=== PATIENT | male | born 1995 | race Caucasian/White ===

== ENCOUNTER 2021-01-16 16:55 | Emergency (ER) | payer OTHER, SELFPAY ==
[2021-01-16 17:07] VITALS: BP 135/80; PULSE 106; RESP 16; TEMP 37.2; O2SAT 98; BMI 31.4
[2021-01-16] MEDS: Lidocaine HCl 1 % MPF 5 ML VIAL SUBCUT (18:23)
--- NOTE | 2021-01-16 18:27 | ED_ITS ---
HPI - Wound/Laceration General Chief Complaint: Extremity Injury, Upper Stated Complaint: Hand inj/Work Time Seen by Provider: 01/16/21 17:46 Source: patient Mode of arrival: ambulatory Limitations: no limitations History of Present Illness HPI narrative: 25-year-old male presenting to the ED with complaints of a laceration to his right hand on the palmar aspect near the base of the thumb/webspace after he was at work and sustained a laceration by a piece of metal. Denies any other injuries complaints or concerns at this time. Reports he is up-to-date on his tetanus. Onset (ago): minute(s) (Prior to arrival) Extremity Location: right: hand Place: work Patient tetanus UTD: Yes Context: accidental Associated symptoms: pain Related Data Previous Rx's Medication Instructions Recorded acetaminophen 500 mg tablet 1,000 mg PO QID PRN #14 tab 01/16/21 (Tylenol Extra Strength) cephalexin 500 mg capsule 500 mg PO Q6H 7 Days #28 cap 01/16/21 Allergies Allergy/AdvReac Type Severity Reaction Status Date / Time No Known Allergies Allergy Verified 01/16/21 17:07 Review of Systems Review of Systems: Constitutional : No Fever, No Chills, Cardiovascular : No Chest Pain, No SOB Respiratory : No Dyspnea Gastrointestinal : No abdominal pain Musculoskeletal : No Joint Swelling Skin : positive skin laceration, No Foreign bodies, No rash, No surrounding erythema Neuro : No Weakness, No Numbness/tingling Psych : No SI/HI/thoughts of self injury Yes all other systems are reviewed and are negative [facility] Past Medical History Attestation statement: The following information was validated with the patient. Medical History Fracture, humerus Social History Social History Advance Directives: No Advance Directives Information Provided: No Physical Exam Vital Signs: Vital Signs: Last Vital Signs Temp 98.9 F 01/16/21 17:07 Pulse 106 H 01/16/21 17:07 Resp 16 01/16/21 17:07 BP 135/80 01/16/21 17:07 Pulse Ox 98 01/16/21 17:07 Body Mass Index 31.4 vital signs have been reviewed as normal and appeared to be correct. Blood pressure normal. Heart rate tachycardic at 106. Respiration rate normal. Temperature normal. Oxygen saturation normal. Appearance: Alert. Oriented X3. No acute distress. Head: Normal external exam. Normocephalic. Atraumatic. Eyes: PERRLA. EOMI. Conjunctiva and sclera normal. Eyelids normal. ENT: Pharynx normal. Uvula midline. Moist mucous membranes. Neck: Normal inspection. Neck supple. FROM. No adenopathy. No meningeal signs. CVS: Normal heart rate and rhythm. Respiratory: No respiratory distress. Painless inspiration. Back: Full range of motion noted. No rashes/lesion/induration/fluctuance or signs of infection noted. Skin: Skin warm and dry. Normal skin color. Normal skin turgor. Patient with 1 cm intermediate laceration to right hand at the palmar aspect at the web space near the base of the thumb no foreign bodies or signs of infection or active bleeding noted. No additional rashes/lesions/lacerations noted. Extremities: Extremities exhibit normal range of motion. Extremities nontender. Neuro: Oriented X 3. No motor deficit. No sensory deficit. Reflexes normal. Normal steady gait. No focal neuro deficits noted. Vascular: + radial pulses. Normal cap refill. No cyanosis noted to upper extremity nails and lower extremity toes nails. Course Course Course Narrative: 25-year-old male presenting to the ED with a right hand laceration after he was at work and sustained the laceration by a piece of metal. Is up-to-date on tetanus. On exam patient does not have any ligamentous laxity. He has full range of motion. No bony tenderness. No x-ray indicated at this time. Patient is status post laceration repair with 3 sutures placed. Patient tolerated procedure well. No complications. Will DC home with antibiotics and symptomatic treatment along with instructions return in 10 days for suture removal and to follow up with Work connection. Patient understands agrees with this plan. [facility] - Wound/Laceration Medical Records Attestation: I reviewed the patient's medical records. Procedures Laceration Laceration 1: Site: hand Side (If applicable): right Size (cm): 1 Description: linear Depth: simple, single layer Local Anesthetic: lidocaine 1% Amount of anesthesia used (mL): 3 Pre-repair: wound explored Skin layer closed with: nylon Size (cm): 4-0 Number of sutures: 3 Technique: simple, interrupted Discharge Plan Discharge Clinical Impression: Laceration, Work related injury Patient Disposition: Home, Self-Care Instructions: Laceration (ED), Return to Work Instructions (ED) Prescriptions: New cephalexin 500 mg capsule 500 mg PO Q6H 7 Days Qty: 28 RF: 0 acetaminophen [Tylenol Extra Strength] 500 mg tablet 1,000 mg PO QID PRN (Reason: fever or pain) Qty: 14 RF: 0 Referrals: Karina Brooks PA [Emergency Midlevel Provider] - 10 days (for suture removal ) Stand Alone Forms: Work/School Release Print Language: Setswana
== END 2021-01-16 18:56 | disposition home or self-care (01) ==
PROVIDERS: Emergency Provider Emergency Medicine Emergency Medical Services
DX: S61.411A Laceration without foreign body of right hand, initial encounter (principal); M79.641 Pain in right hand; W26.9XXA Contact with unspecified sharp object(s), initial encounter; Y92.9 Unspecified place or not applicable; Y99.0 Civilian activity done for income or pay; Z79.899 Other long term (current) drug therapy
CPT/HCPCS: 12001; 99283; 99284

== ENCOUNTER → 2021-01-28 11:09 | Outpatient (BNVA) | payer OTHER, SELFPAY | PROVIDERS: Visit Provider Physician Assistant Medical | DX: S61.411A Laceration without foreign body of right hand, initial encounter (principal); W31.9XXA Contact with unspecified machinery, initial encounter | CPT/HCPCS: 99203; 99212 ==

== ENCOUNTER → 2021-03-19 08:37 | Outpatient (BNVA) | payer OTHER, SELFPAY | PROVIDERS: Visit Provider Internal Medicine | DX: L24.5 Irritant contact dermatitis due to other chemical products (principal) | CPT/HCPCS: 99202 ==

== ENCOUNTER → 2021-03-22 11:48 | Outpatient (BNVA) | payer OTHER, SELFPAY | PROVIDERS: Visit Provider Internal Medicine | DX: L24.89 Irritant contact dermatitis due to other agents (principal) | CPT/HCPCS: 99213 ==

== ENCOUNTER → 2021-03-26 08:00 | Outpatient (BNVA) | payer OTHER, SELFPAY | PROVIDERS: Visit Provider Internal Medicine | DX: L25.3 Unspecified contact dermatitis due to other chemical products (principal) | CPT/HCPCS: 99213 ==